=== PATIENT | female | born 1940 | race Caucasian/White ===

== ENCOUNTER → 2019-12-23 14:47 | Outpatient (ROUT) | payer MEDICARE, OTHER, SELFPAY ==
[2019-12-23 14:52] LABS: Appearance Urine UA CLEAR; Bilirubin Urine UA NEGATIVE (NEGATIVE); Color Urine UA YELLOW; Glucose Urine UA NEGATIVE (Negative); Ketones Urine UA NEGATIVE (NEGATIVE); Leukocyte Esterase Urine UA NEGATIVE (NEGATIVE); Nitrite Urine UA NEGATIVE (Negative); Occult Blood Urine UA NEGATIVE (Negative); Protein Urine UA NEGATIVE (Negative); Specific Gravity Urine UA 1.015 (1.000-1.035); Urobilinogen Urine UA 0.2 E.U./dL (0.2)
[2019-12-23 15:03] LABS: RBC Urine 1-5/HPF (0-5/HPF); Renal Epithelial Cells Urine 1-5/HPF (0-1/HPF); Squamous Epithelial Cell Urine 1-5 /HPF (0-5/HPF); WBC Urine 1-5/HPF (0-5/HPF)
[2019-12-23 15:04] LABS: Bacteria Urine Few (2-10); Culture Indicated Urine Cult Not Indicated; Mucus Urine 1+ (Negative)
== END ==
PROVIDERS: Visit Provider Nurse Practitioner Family
DX: R50.9 Fever, unspecified (principal)
CPT/HCPCS: 81001

== ENCOUNTER → 2020-05-15 11:10 | Outpatient (CLI) | payer MEDICARE, OTHER, SELFPAY ==
--- NOTE | 2020-05-15 | DI.US.S_ITS ---
PROCEDURE: US PERIPH VENOUS LOW EXTREM LT INDICATIONS: RULE OUT DEEP VEIN THROMBOSIS TECHNIQUE: Real-time imaging, as well as color and pulse Doppler interrogation, were performed of the lower extremity deep veins from the inguinal ligament to the popliteal fossa. COMPARISON: None. FINDINGS: The greater saphenous vein appears normal, but the common femoral vein is occluded by deep venous thrombosis. The superficial femoral vein also is partially occluded, and the profundal femora vein is not occluded. The mid to distal superficial femoral vein is occluded. The popliteal vein is not well seen. IMPRESSION: Occlusive DVT is present within the common femoral vein, and the proximal superficial femoral vein. The mid to distal superficial femoral vein which is occluded. The popliteal vein and calf veins more inferiorly are poorly seen due to edema. The healthcare provider ordering this study was attempted to be contacted without success and the patient was transferred to the emergency room physician for further assessment and care. Dictated by: Anthony Horne M.D. on 05/15/2020 at 12:56 Approved by: Anthony Horne M.D. on 05/15/2020 at 13:00
== END ==
PROVIDERS: PCP Nurse Practitioner Family; Referring Provider Nurse Practitioner Family; Visit Provider Nurse Practitioner Family
DX: I82.412 Acute embolism and thrombosis of left femoral vein (principal); M79.89 Other specified soft tissue disorders; M79.605 Pain in left leg
CPT/HCPCS: 93971

== ENCOUNTER 2020-05-15 12:35 | Emergency (ER) | payer MEDICARE, OTHER, SELFPAY ==
[2020-05-15 12:49] VITALS: BP 137/69; PULSE 88; RESP 16; TEMP 36.9; O2SAT 94; O2SAT 96
[2020-05-15 12:51] VITALS: BP 137/69
--- NOTE | 2020-05-15 13:04 | ED.EXTPRO ---
HPI - Extremity Problem <MARQUES Bill - Last Filed: 05/15/20 15:23> General Chief complaint: Extremity Problem,Nontraumatic Stated complaint: US done, possitive for DVT Time Seen by Provider: 05/15/20 12:48 History of Present Illness HPI Narrative: 79-year-old female with a history of Parkinson's, dementia, currently lives at [facility], presents emergency department from ultrasound GI room for a positive DVT in left leg. Patient is a very poor historian, was not answer questions. However, nursing spoke with [facility] and denies any recent injuries or change in vital signs, no cough or shortness of breath. Patient's caregiver at the bedside states that she had a patch placed on left lower leg for a spot that has been weeping. Some surrounding erythema has been improving. windows server administrator states patient has a DNR. Related Data Previous Rx's Medication Instructions Recorded apixaban 10 mg PO BID 7 Days #56 tab 05/15/20 Allergies Allergy/AdvReac Type Severity Reaction Status Date / Time No Known Drug Allergies Allergy Verified 05/15/20 13:06 Review of Systems <MARQUES Bill - Last Filed: 05/15/20 15:23> Review of Systems Narrative: REVIEW OF SYSTEMS difficult to obtain, obtained from [facility] personnel and client care representative at bedside: GENERAL: No fevers. PSYCH: No behavior or mood changes. Exam <MARQUES Bill - Last Filed: 05/15/20 15:23> Initial Vital Signs Initial Vital Signs: Vital Signs Temperature 98.5 F 05/15/20 12:49 Pulse Rate 88 05/15/20 12:49 Respiratory Rate 16 05/15/20 12:49 Blood Pressure 137/69 05/15/20 12:49 Pulse Oximetry 96 05/15/20 12:49 PHYSICAL EXAMINATION: GENERAL: Awake and alert. Difficult historian, does not answer questions. HENT: Normocephalic, atraumatic. EYES: Conjunctiva pink, sclera white, no periorbital swelling. CARDIOVASCULAR: S1 and S2 sounds normal. Regular rate and rhythm, no murmurs, clicks, or bruits. No pedal edema. RESPIRATORY: Normal respiratory rate, trachea midline, airway patent. No stridor, nasal flaring or accessory muscle use. Lungs are clear in all [place] without wheeze, rhonchi, or crackles. MUSCULOSKELETAL: Normal gait and coordination. Equal tone and mass bilaterally. EXTREMITIES: A small 3 cm area of erythema noted to left front of perkins, serosanguineous drainage noted from a small superficial ulcer. Slight increased to touch. SKIN: Warm, dry, soft, appropriate color for ethnicity. No lesions, rashes, or wounds. NEURO: Alert and Oriented X 3. Good coordination. No ataxia, or sensory deficits, or cognitive issues. PSYCH: Appropriate affect and mood. <Pradeep Miramontes DO - Last Filed: 05/15/20 17:08> Initial Vital Signs Initial Vital Signs: Vital Signs Temperature 98.5 F 05/15/20 12:49 Pulse Rate 88 05/15/20 12:49 Respiratory Rate 16 05/15/20 12:49 Blood Pressure 137/69 05/15/20 12:49 Pulse Oximetry 96 05/15/20 12:49 Course <MARQUES Bill - Last Filed: 05/15/20 15:23> Course Course Narrative: 1305: I spoke with Dr. Duarte about patient's positive DVT findings in history. She recommends starting patient on Eliquis for treatment. Discussed brief history, no history of cranial bleeds or other significant counter-indications Orders Ordered: Discontinued Medications Apixaban (Apixaban 5 Mg Tablet) 10 mg PO NOW ONE Stop: 05/15/20 13:30 Last Admin: 05/15/20 13:39 Dose: 10 mg Documented by: RICCI Reevaluation(s) Reevaluation #1: Patient staffed with Dr. Miramontes, discussed tests, consults, and plan of care. Vital Signs Vital signs: Vital Signs - 8 hr 05/15/20 12:49 05/15/20 12:51 05/15/20 13:43 Temperature 98.5 F Pulse Rate 88 81 Respiratory Rate 16 Blood Pressure 137/69 137/69 129/65 Pulse Oximetry 94 96 <Pradeep Miramontes DO - Last Filed: 05/15/20 17:08> Orders Ordered: Discontinued Medications Apixaban (Apixaban 5 Mg Tablet) 10 mg PO NOW ONE Stop: 05/15/20 13:30 Last Admin: 05/15/20 13:39 Dose: 10 mg Documented by: RICCI Vital Signs Vital signs: Vital Signs - 8 hr 05/15/20 12:49 05/15/20 12:51 05/15/20 13:43 Temperature 98.5 F Pulse Rate 88 81 Respiratory Rate 16 Blood Pressure 137/69 137/69 129/65 Pulse Oximetry 94 96 MDM - Extremity (Nontraumatic) <MARQUES Bill - Last Filed: 05/15/20 15:23> Medical Records Attestation: I reviewed the patient's medical records. Lab Data Attestation: I reviewed the patient's lab results. Imaging Data US - DVT: Radiologist's Impression: [address] [id number] ReportSigned Patient: Toni Wade#: [id number]: 9Acct:[id number]/Sex: 79 / FDate of Service: 05/15/20Loc: USAccession Number: [id number] Procedure: US periph venous low extrem lt Ordering Provider: Leti Henao PROCEDURE: US PERIPH VENOUS LOW EXTREM LT INDICATIONS: RULE OUT DEEP VEIN THROMBOSIS TECHNIQUE: Real-time imaging, as well as color and pulse Doppler interrogation, were performed of the lower extremity deep veins from the inguinal ligament to the popliteal fossa. COMPARISON: None. FINDINGS: The greater saphenous vein appears normal, but the common femoral vein is occluded by deep venous thrombosis. The superficial femoral vein also is partially occluded, and the profundal femora vein is not occluded. The mid to distal superficial femoral vein is occluded. The popliteal vein is not well seen. IMPRESSION: Occlusive DVT is present within the common femoral vein, and the proximal superficial femoral vein. The mid to distal superficial femoral vein which is occluded. The popliteal vein and calf veins more inferiorly are poorly seen due to edema. The healthcare provider ordering this study was attempted to be contacted without success and the patient was transferred to the emergency room physician for further assessment and care. Dictated by: Anthony Horne M.D. on 05/15/2020 at 12:56 Approved by: Anthony Horne M.D. on 05/15/2020 at 13:00 [facility] Narrative Medical decision making narrative: 79-year-old female with a history of dementia and Parkinson's disease, presents emergency department after an ultrasound resulted showing a positive DVT. Patient presents with caregiver but is a poor historian due to dementia and Parkinson's disease. Given patient's history and difficulty conversing with patient, patient's PCP Dr. Duarte was consulted, she recommended treating DVT with apixaban. Discussed that patient has small area of light pink discoloration, not appear to be acutely infected at that time by recommended follow-up PCP as well. Nursing called report to [facility]. Return precautions given for new worsening symptoms. Patient is a febrile, non tachycardic, oxygen saturation within normal limits, very little concern for PE. Initially, nursing turning her of oxygen saturation of 84 noted but this was a documenting error confirmed by nursing. Discharge Plan Departure Patient Disposition: Home Clinical Impression: Deep vein thrombosis of lower extremity Qualifiers: Affected thrombotic vein of extremity: femoral Chronicity: acute Laterality: left Qualified Code(s): I82.412 - Acute embolism and thrombosis of left femoral vein Instructions: DI for Deep Vein Thrombosis Activity Restrictions/Additional Instructions: Thank you for entrusting me with your care today. As discussed, you have a blood clot in your left leg. I have spoke with Dr. Duarte and we have started you on a blood thinner. Please take extra care not hit your head while taking this. Your 1st dose was given today in the emergency department. Please follow-up with your primary care provider in the next week for further evaluation. Return emergency department for any new or worsening things. Prescriptions: New apixaban 5 mg tablet 10 mg PO BID 7 Days Qty: 56 RF: 0 Referrals: Leti Henao ARNP [Primary Care Provider] - <Pradeep Miramontes DO - Last Filed: 05/15/20 17:08> Cosign ED Attending Cosignature Attestation: Dr Miramontes Co-Sign Statement: I was available for consultation during this patient's emergency department visit. This chart is signed by myself for administrative purposes only. I did not have direct contact with this patient during this visit. They were seen independently by the APC.
[2020-05-15] MEDS: APIXABAN 5 MG TABLET 10 MG PO (13:39)
[2020-05-15 13:43] VITALS: BP 129/65; PULSE 81; O2SAT 96
--- NOTE | 2020-05-15 13:45 | PC.NURSE ---
Lead RN Shabana foster [facility] Called and given report. Pt to be picked up by staff member.
== END 2020-05-15 14:02 | disposition home or self-care (01) ==
PROVIDERS: Emergency Provider Nurse Practitioner; PCP Nurse Practitioner Family
DX: I82.412 Acute embolism and thrombosis of left femoral vein (principal); G20 Parkinson's disease; F02.80 Dementia in other diseases classified elsewhere, unspecified severity, without behavioral disturbance, psychotic disturbance, mood disturbance, and anxiety; Z79.01 Long term (current) use of anticoagulants; M79.89 Other specified soft tissue disorders; M79.605 Pain in left leg
CPT/HCPCS: 93971; 99281; 99283